=== PATIENT | male | born 1965 ===

== ENCOUNTER → 2021-03-21 | Emergency (ER) | payer BC, OTHER ==
[~2021-03-21] VITALS: Ht 182.9 cm; Wt 70.3 kg
[~2021-03-21] MED LIST: AMOX-430 PO; ATOR40TA PO; HYDR-3980 PO; IV NS 0.9% 1,000 ML IV ONE; LACTULOSE 10 G/15 ML UDC (PYXIS) ONE; MORPHINE SULFATE INJ 2 MG/ML DISP.SYRIN IV ONE; MORPHINE SULFATE INJ 4 MG/ML DISP.SYRIN ONE; ONDA4TAB5 PO; ONDANSETRON HCL/PF 4 MG/2 ML VIAL IV ONE; ONDANSETRON HCL/PF 4 MG/2 ML VIAL ONE; QUIN40TA14 PO
--- NOTE | 2021-03-21 11:53 | NUR ---
BIBS C/O ABDOMINAL PAIN X1 DAY ON HIS RIGHT SIDE THAT RADIATES TO HIS BACK, STATED 10/10 ON PAIN SCALE. PT STATED HE FEELS NAUSEOUS. PT VITALS ARE WITHIN NORMAL LIMITS. BREATHING IS EVEN AND UNLABORED ON ROOM AIR. PT ATTACHED TO MONITOR.
--- NOTE | 2021-03-21 11:57 | NUR ---
DR FOLEY AT BEDSIDE FOR EVAL
--- NOTE | 2021-03-21 12:00 | NUR ---
IV ETSABLISHED, 20G R AC, LABS WERE DRAWN AND COLLECTED AT BEDSIDE. IV CONVERTED TO SALINE LOCK.
[2021-03-21 12:10] LABS: BASOPHILS % (AUTO) 0.4 % (0.0-2.0); EOSINOPHILS % (AUTO) 0.2 % (0.0-6.0); HEMATOCRIT 44 % (39-51); HEMOGLOBIN 14.9 g/dL (13.5-17.5); LYMPHOCYTES # (AUTO) 2.5 K/uL (0.8-4.8); LYMPHOCYTES % (AUTO) 29.9 % (20.0-44.0); MEAN CORPUSCULAR HGB CONC 34 g/dl (31.0-36.0); MEAN CORPUSCULAR VOLUME 96 fL (80-96); MONOCYTES # (AUTO) 0.7 K/uL (0.1-1.30); MONOCYTES % (AUTO) 8.6 % (2.0-12.0); NEUTROPHILS % (AUTO) 60.9 % (43.0-81.0); PLATELET COUNT (AUTO) 323 K/uL (150-450); RED BLOOD CELL COUNT(AUTO) 4.58 MIL/uL (4.5-6.0); WHITE BLOOD COUNT (AUTO) 8.3 K/uL (4.3-11.0)
--- NOTE | 2021-03-21 12:11 | NUR ---
URINE COLLECTED AND SENT
[2021-03-21 12:24] LABS: CALCIUM, SERUM 9.3 mg/dL (8.5-10.1); CREATININE 0.9 mg/dL (0.6-1.3); POTASSIUM 3.2 mmol/L (3.5-5.1)
[2021-03-21 12:29] LABS: BILIRUBIN,URINE NEGATIVE (NEGATIVE); COLOR,URINE YELLOW (YELLOW); LEUKOCYTE ESTERASE ,URINE NEGATIVE (NEGATIVE); NITRITE, URINE NEGATIVE (NEGATIVE); PROTEIN,URINE NEGATIVE (NEGATIVE); UGLUCOSE NEGATIVE (NEGATIVE)
--- NOTE | 2021-03-21 12:33 | NUR ---
TAKEN TO CT
--- NOTE | 2021-03-21 12:34 | NUR ---
Shyla burgos in [facility] - 03/21/21 at 1235 by SHAYLA PT TAKEN TO CT VIA CHELSI
[2021-03-21 12:36] LABS: ALBUMIN 4.2 g/dL (3.4-5.0); BILIRUBIN,DIRECT 0.3 mg/dL (0.0-0.2); BILIRUBIN,TOTAL 0.9 mg/dL (0.2-1.0); TOTAL PROTEIN, SERUM 7.5 g/dL (6.4-8.2)
--- NOTE | 2021-03-21 12:53 | NUR ---
ULTRASOUND AT BEDSIDE
[2021-03-21] MEDS: PEG 3350/NA SULF,BICARB,CL/KCL 4,000 ML BOTTLE PO ONE ×2 (13:12→13:22)
[2021-03-21] MEDS: LACTULOSE 10 G/15 ML UDC (PYXIS) GT ONE ×2 (13:14→13:22)
[2021-03-21 13:25] LABS: BACTERIA,URINE None seen /HPF (None Seen); MUCUS,URINE Many /LPF (None Seen); RBC,URINE 0-2 /HPF (0-2); SQUAMOUS EPITHELIAL CELL,UR Few /HPF (None Seen)
[2021-03-21 14:16] VITALS: BP 124/81
--- NOTE | 2021-03-21 14:16 | NUR ---
IV removed. Catheter intact and site benign. Pressure and 4x4 applied to site. No bleeding noted.Patient discharged to home in stable condition. Written and verbal after care instructions given. Patient verbalizes understanding of instruction.
== END | disposition home or self-care (01) ==
LOC: ER 11:54
DX: K63.9 Disease of intestine, unspecified (principal); K29.80 Duodenitis without bleeding; K57.30 Diverticulosis of large intestine without perforation or abscess without bleeding; K76.0 Fatty (change of) liver, not elsewhere classified; I10 Essential (primary) hypertension; E78.5 Hyperlipidemia, unspecified; Z79.899 Other long term (current) drug therapy
CPT/HCPCS: 36415; 74176; 76705; 80048; 80076; 81001; 83690; 85025; 96361; 96374; 96375; 99284; J2270; J2405; J7030